=== PATIENT | male | born 1990 | race Caucasian/White ===

== ENCOUNTER 2020-09-30 16:10 | Emergency (ER) | payer SELFPAY ==
[2020-09-30 16:12] VITALS: BP 145/87; PULSE 102; RESP 17; TEMP 36.8; O2SAT 100
[2020-09-30] MEDS: IBUPROFEN 600 MG TABLET PO (17:17)
--- NOTE | 2020-09-30 17:17 | ED.GENADULT ---
HPI - General Adult General Chief complaint: Wound/Laceration Stated complaint: Wounds Time Seen by Provider: 09/30/20 16:17 Source: patient and family Mode of arrival: ambulatory Limitations: no limitations History of Present Illness HPI narrative: Patient is a 30-year-old male who presents to emergency department for evaluation of wound to the scrotum and left wrist for the last several days patient notes aching pain with drainage that began today patient notes he has had similar lesions on the body patient is unsure as to the etiology patient does not take anything for his symptoms nor is he been seen for this complaint Related Data Allergies Allergy/AdvReac Type Severity Reaction Status Date / Time No Known Allergies Allergy Verified 09/30/20 16:11 Review of Systems Review of Systems: All systems reviewed & are unremarkable except as noted in HPI and below PMFSH Social History Social History (Updated 09/30/20 @ 17:17 by Aftab Rainey PA-C) Smoking status: Current every day smoker Gender identity (if verbalized by the patient): Male Exam Narrative: Exam Narrative: GENERAL: Well-appearing, well-nourished, and in no acute distress. HEAD: Normocephalic, atraumatic. EYES: PERRLA and EOMI. ENT: Nares clear, no rhinorrhea or epistaxis. Mucous membranes moist. EXTREMITIES: Normal range of motion. No edema. SKIN: Warm, dry, no rash. Patient with red tender swollen lesion of the radial aspect left wrist draining purulent drainage lesion is dime sized. Patient with similar dime size lesion of the scrotum draining purulent drainage no cellulitic changes or surrounding swelling NEURO: No focal deficits. Alert and oriented x3. Cranial nerves II through XII grossly intact PSYCH: Normal mood and affect. Course Course Emergency Course: Patient in the room no distress lesions were manually drained antibiotic ointment placed was given antibiotic in the emergency department with plan follow-up with primary care felt appropriate for outpatient reevaluation wound cultures were obtained Vital Signs Vital signs: Vital Signs Temperature 98.3 F 09/30/20 16:12 Pulse Rate 102 H 09/30/20 16:12 Respiratory Rate 17 09/30/20 16:12 Blood Pressure 145/87 H 09/30/20 16:12 Pulse Oximetry 100 09/30/20 16:12 Temperature 98.3 F 09/30/20 16:12 Pulse Rate 102 H 09/30/20 16:12 Respiratory Rate 17 09/30/20 16:12 Blood Pressure 145/87 H 09/30/20 16:12 Pulse Oximetry 100 09/30/20 16:12 Procedures Abscess I/D upper extremity: Date of Incision: 09/30/20 Time of Incision: 17:20 Side (if applicable): left Local Anesthetic: none Packing used?: none I&D Results: Pus Complications: pain Abcess I&D Additional Comments: Lesions were manually drained Medical Decision Making MDM Narrative Medical decision making narrative: Patient with staph infection room no distress will be discharged home with outpatient follow-up provided with reasons to return Vital Signs Vital Signs: Vital Signs Temperature 98.3 F 09/30/20 16:12 Pulse Rate 102 H 09/30/20 16:12 Respiratory Rate 17 09/30/20 16:12 Blood Pressure 145/87 H 09/30/20 16:12 Pulse Oximetry 100 09/30/20 16:12 Temperature 98.3 F 09/30/20 16:12 Pulse Rate 102 H 09/30/20 16:12 Respiratory Rate 17 09/30/20 16:12 Blood Pressure 145/87 H 09/30/20 16:12 Pulse Oximetry 100 09/30/20 16:12 Discharge Plan Discharge Clinical Impression: Abscess Patient Disposition: Home, Self-Care Condition: Stable Instructions: Antibiotic Form, Abscess (ED) Additional Instructions: Follow up with primary care in the next 2-3 days for re-evaluation return if symptoms worsen or concerns, any increase in redness swelling pain or fever over 100.5 Clean wound with mild soapy water. Apply antibiotic ointment and clean dressing at least three times daily Warm compresses 5 times a day for 15 min
[2020-09-30 17:44] VITALS: PULSE 99; RESP 12; O2SAT 99
== END 2020-09-30 17:48 | disposition home or self-care (01) ==
PROVIDERS: Emergency Provider Emergency Medicine
DX: L02.414 Cutaneous abscess of left upper limb (principal); N49.2 Inflammatory disorders of scrotum; B95.62 Methicillin resistant Staphylococcus aureus infection as the cause of diseases classified elsewhere; F17.200 Nicotine dependence, unspecified, uncomplicated
CPT/HCPCS: 87070; 87075; 87147; 87186; 87205; 96372; 99283; A9270

== ENCOUNTER 2022-05-19 17:56 | Emergency (ER) | payer OTHER, SELFPAY ==
--- NOTE | ~2022-05-19 | XR_ITS ---
EXAM: XR finger 2nd LT min 2V DATE: 05/19/2022 18:41 HISTORY: 300 LB ROCK FELL ON FINGER . COMPARISON: None available. FINDINGS: Normal mineralization. No fracture or dislocation. No lytic or blastic lesion. Joint space s are maintained. No erosion or periosteal change. Avulsive soft tissue defect at the tip of the [place] finger. IMPRESSION: No acute osseous finding in the left second digit. Reviewed, dictated and finalized at location K.
[2022-05-19 17:58] VITALS: BP 173/89; PULSE 108; RESP 20; TEMP 36.4; O2SAT 96
--- NOTE | 2022-05-19 21:10 | ED.WOUNDLAC ---
HPI - Wound/Laceration General Chief Complaint: Wound/Laceration Stated Complaint: L 2ND FINGER LAC Time Seen by Provider: 05/19/22 20:09 Source: patient Mode of arrival: ambulatory Limitations: no limitations History of Present Illness HPI narrative: This is a 32 year old male that presents to the ER for an injury to his left 2nd finger sustained just prior to arrival. Reports he dropped a heavy stone on his finger at work. Reports avulsion as the skin at the edge of his finger as well as his nail. He is not up-to-date on tetanus. Denies decreased range of motion or numbness. Related Data Allergies Allergy/AdvReac Type Severity Reaction Status Date / Time No Known Allergies Allergy Verified 09/30/20 16:11 Review of Systems Review of Systems: CONSTITUTIONAL: Denies fever SKIN: Reports laceration NEUROLOGIC: Denies numbness All systems reviewed & are unremarkable except as noted in HPI and below PMFSH Past Medical History Medical History (Updated 05/20/22 @ 00:00 by Isaiah Hubbard) No active medical problems Social History Social History (Updated 09/30/20 @ 17:17 by Aftab Rainey, PAKatelynn) Smoking status: Current every day smoker Gender identity (if verbalized by the patient): Male Exam Narrative: GENERAL: Well-appearing, well-nourished, and in no acute distress. HEAD: Normocephalic, atraumatic. EYES: EOMI. EXTREMITIES: Normal range of motion. Left second finger distal phalanx with with skin avulsion injury to the tip of the finger. The nail is also avulsed. SKIN: Warm, dry, no rash. NEURO: No focal deficits. Alert and oriented x3. PSYCH: Normal mood and affect Course Vital Signs Vital signs: Vital Signs Temperature 97.5 F L 05/19/22 17:58 Pulse Rate 108 H 05/19/22 17:58 Respiratory Rate 05/19/22 17:58 Blood Pressure 173/89 H 05/19/22 17:58 Pulse Oximetry 96 05/19/22 17:58 Oxygen Delivery Room Air 05/19/22 17:58 Temperature 97.5 F L 05/19/22 17:58 Pulse Rate 108 H 05/19/22 17:58 Respiratory Rate 20 05/19/22 17:58 Blood Pressure 142/91 H 05/19/22 22:12 Pulse Oximetry 96 05/19/22 17:58 Oxygen Delivery Room Air 05/19/22 17:58 MDM - Wound/Laceration MDM Narrative Medical decision making narrative: Patient presents to the emergency department for an injury to the left second finger sustained this afternoon. Left second finger x-ray without acute osseous abnormalities. Patient avulsed some skin of the distal phalanx as well as the nail. Wound was irrigated. Patient updated on tetanus. Bleeding was controlled upon arrival. He was bandaged with a nonstick bandage, Kerlix and Coban. Patient will be given follow-up with hand surgery. He was given warnings to return to the ER Patient's blood pressure was noted to be elevated upon arrival. This did downtrend with treatment of his pain. He was instructed to continue to monitor this and follow-up with primary for this Imaging Data Radiologist's impression: ITS Impressions Finger X-Ray 05/19/22 18:47 IMPRESSION: No acute osseous finding in the left second digit. Critical Care Time Critical Care Time Critical Care Time: No Discharge Plan Discharge Clinical Impression: Avulsion of skin, Avulsion of nail Patient Disposition: Home, Self-Care Condition: Stable Instructions: Antibiotic Form, Skin Avulsion (ED) Additional Instructions: Return to the emergency department if you experience fever, redness or swelling of your wound, abnormal drainage from your wound, or any other symptoms that are concerning to you. Apply antibiotic ointment daily. Do not soak the wound. Clean with mild soap and water daily. Take oral antibiotic as prescribed Follow-up with Dr. Forde for wound check Prescriptions: New cephalexin 500 mg capsule 500 mg PO Q8H 5 Days Qty: 15 0RF hydrocodone-acetaminophen 5-325 mg tablet 1 tablet PO Q6H PRN (Reason: pain) Qty: 14 0RF No A
[2022-05-19] MEDS: HYDROcodone/acetaminophen (*CRX) 5-325 MG TABLET 1 TAB PO (21:12)
[2022-05-19] MEDS: TETANUS,DIPHTHERIA,AC PERTUSSIS ADULT (0.5 ML) BOOSTRIX IM (21:14)
[2022-05-19 22:12] VITALS: BP 142/91
== END 2022-05-19 22:50 | disposition home or self-care (01) ==
PROVIDERS: Emergency Provider Emergency Medicine
DX: S61.311A Laceration without foreign body of left index finger with damage to nail, initial encounter (principal); F17.210 Nicotine dependence, cigarettes, uncomplicated; Z23 Encounter for immunization; W20.8XXA Other cause of strike by thrown, projected or falling object, initial encounter
CPT/HCPCS: 73140; 90471; 90715; 99283; A9270